=== PATIENT | male | born 2000 | race Two or more races ===

== ENCOUNTER → 2024-08-26 | Emergency (ER) | payer BC ==
[~2024-08-26] VITALS: Ht 177.8 cm; Wt 79.4 kg
[~2024-08-26] MED LIST: AMOX-430 PO
[2024-08-26 15:25] VITALS: BP 130/75; TEMP 98.3; O2SAT 100
[2024-08-26 16:37] LABS: BASOPHILS % (AUTO) 0.3 % (0.0-2.0); EOSINOPHILS # (AUTO) 0.2 K/uL (0.0-0.7); EOSINOPHILS % (AUTO) 1.4 % (0.0-6.0); HEMATOCRIT 43 % (39-51); HEMOGLOBIN 14.3 g/dL (13.5-17.5); LYMPHOCYTES # (AUTO) 1.3 K/uL (0.8-4.8); MEAN CORPUSCULAR HEMOGLOBIN 29 PG (26.0-33.0); MEAN CORPUSCULAR HGB CONC 33 g/dl (31.0-36.0); MEAN CORPUSCULAR VOLUME 87 fL (80-96); MONOCYTES # (AUTO) 1.1 K/uL (0.1-1.30); MONOCYTES % (AUTO) 9.5 % (2.0-12.0); NEUTROPHILS # (AUTO) 8.5 K/uL (1.8-8.9); NEUTROPHILS % (AUTO) 76.8 % (43.0-81.0); PLATELET COUNT (AUTO) 330 K/uL (150-450); RED BLOOD CELL COUNT(AUTO) 4.93 MIL/uL (4.5-6.0); RED CELL DISTRIBUTION WIDTH 12.7 % (11.5-15.0); WHITE BLOOD COUNT (AUTO) 11.1 K/uL (4.3-11.0)
[2024-08-26 16:44] LABS: CALCIUM, SERUM 9.8 mg/dL (8.5-10.1); POTASSIUM 3.6 mmol/L (3.5-5.1)
[2024-08-26] MEDS: CEFTRIAXONE 1 G in IV D5W 50 ML IV ONE (17:33)
[2024-08-26] MEDS: AZITHROMYCIN 500 MG in IV D5W 250 ML IV ONE (17:50)
== END ==
LOC: ER 15:16
DX: J18.9 Pneumonia, unspecified organism (principal); F17.210 Nicotine dependence, cigarettes, uncomplicated
CPT/HCPCS: 99284; 96365; 71045; 96366; 96368; 85025; 80048; 36415; J0696; J7060; J0456; A4223